=== PATIENT | female | born 1940 | race Caucasian/White ===

== ENCOUNTER 2016-09-19 15:43 | Inpatient (IN) | payer OTHER, BC ==
[~2016-09-19] VITALS: Ht 165.1 cm; Wt 111.8 kg
--- NOTE | ~2016-09-19 | H ---
[facility] [place] [address] HISTORY AND PHYSICAL Name: ZENAIDA MONTES Room #: 432-P ADM IN M.R.#: [id number] Admission: 09/19/16 Attend Phys: Kristopher Fajardo MD Discharge: Date of : 40 Report #: [id number] THIS REPORT FOR: //name// CC: Mitzy Fajardo DATE OF SERVICE: 09/19/2016 CHIEF COMPLAINT: Shortness of breath and cough. HISTORY OF PRESENT ILLNESS: This is a 76-year-old female with history of hypertension, history of COPD who presented to the Emergency Room complaining of progressively worsening shortness of breath. Symptoms have been ongoing over the last 3 weeks. She was referred to the Emergency Room because of worsening hypoxia. The patient normally uses 2 liters of oxygen with activity. Apparently, she turned up her oxygen up to 4 L and she was not able to get it up over 90%. The patient was seen by PCP and referred to the hospital for admission. She has had cough with grayish sputum. No history of any chest pain, no dizziness. She has had some mild low-grade fever. She has also noticed increasing lower extremity swelling. PAST MEDICAL HISTORY: Significant for hypertension, history of coronary artery disease, status post AL and status post stent, history of brain aneurysm, status post clipping. She has no history of any VEHICLE WASHER bleed. Denies any peptic ulcer disease or bleeding disorder. No history of any diabetes. She has history of COPD. She has a history of hysterectomy, craniotomy, seizures, history of questionable DVT in the past, obesity. ALLERGIES: SHE IS ALLERGIC TO KEPPRA, ROCEPHIN AND DILANTIN. Please look at the nursing documentation for the reaction. HOME MEDICATIONS: Reviewed, please look at the nursing documentation for home meds. SOCIAL HISTORY: Ex-smoker, stopped smoking 20 years ago. No history of alcohol abuse or illicit drug abuse. FAMILY HISTORY: Significant for heart disease and hypertension. REVIEW OF SYSTEMS: CONSTITUTIONAL: She has lost some weight, unable to quantify. She has had some fever and chills. EYES: No change in vision. THROAT: Denies any sore throat. CARDIOVASCULAR: No chest pain, dizziness, palpitations. [facility] [address] [place] [address] HISTORY AND PHYSICAL Name: ZENAIDA MONTES Room #: 432-P [facility] IN ..#: [id number] Admission: 09/19/16 Attend Phys: Kristopher Fajardo MD Discharge: Date of : 40 Report #: [id number] RESPIRATORY: As above. GASTROINTESTINAL: No nausea, vomiting, abdominal pain. GENITOURINARY: No dysuria, hematuria. NEUROLOGIC: No focal numbness or weakness of the extremities. PSYCHIATRIC: No anxiety or depression. A 12-point review of system is negative other than the positive and the negative dictated in the history of present illness and in the review of system. PHYSICAL EXAMINATION: VITAL SIGNS: Reviewed. Blood pressure 171/78, heart rate of 98 per minute. The patient is saturating around 93% on 4 liters of oxygen. Afebrile. GENERAL: Awake and alert. She is in mild respiratory distress. EYES: Pupils equal, reactive to light. Throat appears normal. NECK: Supple, no JVD, no bruit, no lymphadenopathy. CARDIOVASCULAR SYSTEM: S1, S2, no S3, no murmur. CHEST: Bilateral air entry present bilaterally, expiration is prolonged bilateral wheeze present. ABDOMEN: Soft, bowel sounds present, no mass, no organomegaly, no tenderness. PERIPHERY: Has 1+ pedal edema. No calf tenderness. Dorsalis pedis 1+. NEUROLOGICAL: No gross motor or sensory deficit. LABORATORY DATA: Reviewed. White count is 14.6, hemoglobin is 12.4. Differential showed 82% segs. Blood gas showed a pH of 7.52, pCO2 of 42, pO2 of 67 and 92% saturation on 5 liters of oxygen. Chemistry showed a hemoglobin of 2.8. Sodium is 141, BUN and creatinine are 7 and 0.6. BNP is 1647, troponin is 0.04. EKG showed sinus rhythm, left ventricular hypertrophy, nonspecific T-wave abnormality. ASSESSMENT: 1. Acute on chronic respiratory failure, most likely secondary to pneumonia and COPD exacerbation. Chest x-ray did show bibasilar hazy infiltrates. The patient will be on DuoNebs, IV steroids and antibiotics. Pulmonary will be consulted. I will also order a D-dimer. We will consider doing a CT of the chest if the D-dimer is elevated. Venous Doppler of the lower extremity has also been requested to rule out any deep venous thrombosis. 2. History of hypertension. The patient will be continued on her present home medication for hypertension. 3. Deep venous thrombosis prophylaxis, she will be placed on Lovenox for DVT prophylaxis. 4. History of seizure disorder, on carbamazepine, which will be continued. 5. History of hyperlipidemia. The patient will be continued on statin. [facility] [address] [place] [address] HISTORY AND PHYSICAL Name: ZENAIDA MONTES Room #: 432-P [facility] IN .R.#: [id number] Admission: 09/19/16 Attend Phys: Kristopher Fajardo MD Discharge: Date of : 40 Report #: [id number] Treatment plan has been explained to the patient and the patient's family at bedside in detail. <ELECTRONICALLY SIGNED> By: Kristopher Fajardo MD 09/21/16 1108 [id number] Kristopher Fajardo MD /nt
--- NOTE | ~2016-09-19 | HC ---
[facility] [place] [address] CONSULTATION Name: MONTESZENAIDA M Room #: 239-P [facility] IN .R.#: [id number] Admission: 09/19/16 Attend Phys: Kristopher Fajardo MD Discharge: Date of : 40 Report #: [id number] THIS REPORT FOR: //name// CC: Sam Fajardo DATE OF SERVICE: 09/27/2016 CHIEF COMPLAINT: Nausea and vomiting. HISTORY OF PRESENT ILLNESS: The patient is a 76-year-old female, admitted on 09/19/2016, with shortness of breath and cough. At that time, workup showed pulmonary embolism and possible pneumonia, which may be consistent with aspiration pneumonia. She had had a productive cough with thomas sputum. She had also had low grade fever and increasing lower extremity swelling. The patient's past medical history had been positive for hypertension, coronary artery disease, previous myocardial infarction with stent, previous brain aneurysm. No history of intracranial hemorrhage. No prior peptic ulcer disease or bleeding disorder. She did have history of COPD, requiring oxygen at home, possible history of DVT in the past, history of obesity, prior surgical history of hysterectomy and craniotomy. She was admitted and treated for pneumonia and anticoagulated for pulmonary embolism. She was noted late last week to develop black vomitus and was noted to have heme positive stools. Gastroenterology was consulted and she was treated with MiraLax for potential constipation. CT scan was obtained 4 nights ago with a small amount of oral contrast. This showed some questionable liver lesions and diverticulosis. The liver lesions were characterized as scattered hypodensities within the liver, possible cysts versus metastatic disease, no focal inflammatory changes of the bowel were identified. No wall thickening. No appendicitis. Dense aortic plaquing was noted without aneurysm or adenopathy. Pancreas was normal in size without focal abnormality or inflammatory change. Gallbladder showed dependent stones without wall thickening or bile duct dilatation. On September 26, yesterday, the patient underwent EGD, which showed grade D erosive esophagitis. She was noted to have a large amount of fluid and residual food within the stomach consistent with possible gastroparesis. At the first portion of the duodenum; however, it was noted that the scope was unable to be passed further. Biopsies were obtained. The remainder of the duodenum was unable to be visualized according to GI. No obvious active bleeding within the stomach or esophagus was noted. The pylorus itself appeared normal. Upper GI series with barium contrast was obtained this morning and it showed duodenal obstruction with lack of gastric emptying past the first portion of the duodenum. Esophagus showed normal morphology and mortality, no obvious hiatal hernia or gastroesophageal reflux was identified. PAST MEDICAL HISTORY: As described above, hypertension, coronary artery disease with stent, prior myocardial infarction; previous brain aneurysm, requiring craniotomy and clipping; COPD, on home oxygen; seizure disorder, [place] [address] CONSULTATION Name: ZENAIDA MONTES Room #: 239-P [facility] IN M.R.#: [id number] Admission: 09/19/16 Attend Phys: Kristopher Fajardo MD Discharge: Date of : 40 Report #: [id number] questionable history of DVT, previous history of issues with obesity. PAST SURGICAL HISTORY: Hysterectomy, craniotomy, left total knee replacement, and oral surgery in the past. ALLERGIES: Include Keppra, Rocephin, and Dilantin. HOME MEDICATIONS: Included DuoNebs, aspirin, benazepril, carbamazepine, chlorthalidone, clonidine, Lovenox 100 mg subcu twice daily, Advair, furosemide, Xopenex, Levaquin, loratadine, Meloxicam, methylprednisolone, metoprolol, and rosuvastatin. FAMILY HISTORY: Negative for history of colon cancer or ulcer disease. Coronary artery disease is present in the family history. SOCIAL HISTORY: The patient lives with her who is present at the bedside. Social ETOH only. Negative for illicit drug use. Previous smoker many years ago, stopped in approximately 2004. PHYSICAL EXAMINATION: GENERAL: The patient is awake with a nasogastric tube in place. She is uncomfortable, but in no acute distress. She is well nourished. HEENT: Head is atraumatic and normocephalic. Oropharynx is clear. No icterus is appreciated. NECK: Supple. LUNGS: Clear to auscultation. HEART: Regular without murmur. No jugular venous distention. ABDOMEN: Soft, nondistended, nontender to palpation. EXTREMITIES: With 1+ edema. NEUROLOGIC: No obvious focal deficits. LABORATORY STUDIES: Reviewed. CBC shows a white count of 17.9, hemoglobin of 11, and platelets of 238. Glucose of 91, 98 and then 147. Basic metabolic profile shows sodium 140, potassium 4, chloride 101, CO2 of 32, BUN of 25, and creatinine 0.9. IMPRESSION: A 76-year-old female with duodenal obstruction of unclear etiology, status post EGD with biopsies yesterday and with upper GI series performed today showing this same process. No obvious history of prior peptic ulcer disease, also noted to have multiple hypoechoic lesions in the liver of unclear etiology. Recent diagnosis of pulmonary embolism and possible prior history of deep venous thrombosis. RECOMMENDATIONS: 1. Will obtain CT scan of the abdomen and pelvis with pancreas protocol. The patient has a normal creatinine and should therefore tolerate the intravenous contrast. Nasogastric tube has been placed for low intermittent wall suction to help decompress the stomach and remove the barium to improve the visualization of the target area. 2. Concern for possible neoplastic process given the mass-like obstruction seen on EGD as well as the relative lack of passage of oral contrast past the first portion of the [facility] [address] [place] [address] CONSULTATION Name: JYOTIZENAIDA Carl Room #: 239-P [facility] IN M.R.#: [id number] Admission: 09/19/16 Attend Phys: Kristopher Fajardo MD Discharge: Date of : 40 Report #: [id number] duodenum on upper GI series today. Detailed discussion held with gastroenterology as well as radiology and the patient and her family at the bedside today. Will follow up results of biopsies from today as well as with the more detailed CT images, which hopefully will be obtained tomorrow. 3. No immediate surgical intervention, although this may become warranted in the near future. Also discussed that possible percutaneous biopsy of these multiple liver masses may prove beneficial in the near future. Consultation very much appreciated. We will continue to follow closely and make further recommendations based upon clinical status and radiographic and laboratory findings. Greater than 1 hour utilized gathering information from the various studies and procedures as well as with discussing the case with the patient, her family and with the various members of the medical team. <ELECTRONICALLY SIGNED> By: Shane Ochoa MD 10/04/16 1730 1857 05 Shane Ochoa MD /stella
--- NOTE | ~2016-09-19 | HC ---
[facility] [place] [address] CONSULTATION Name: ZENAIDA MONTES Room #: 432-P [facility] IN M.R.#: [id number] Admission: 09/19/16 Attend Phys: Kristopher Fajardo MD Discharge: Date of : 40 Report #: [id number] THIS REPORT FOR: //name// CC: Mitzy Fajardo REASON FOR CONSULTATION: The patient is a 76-year-old woman with nausea, vomiting and diarrhea. HISTORY OF PRESENT ILLNESS: A 76-year-old woman who reports she had difficulty with cough and shortness of breath for about 3 weeks. She presented to her physician and was referred to [facility] for admission. She was admitted with an acute respiratory infection and exacerbation of chronic obstructive pulmonary disease. The patient reports that here in the hospital, she developed constipation. She noted that she had a couple of large stools and then did not go for a number of days, and it may have been 5 to 6 days before she finally went. She also developed some nausea and vomiting here in the hospital. She was given laxatives for constipation but thinks the nausea and vomiting had started prior to the laxative administration. She said she vomited up some blackish type material but not bright red blood. It is noted that she does use meloxicam for osteoarthritis. She continued to feel bad. She had further nausea and vomiting, and last night finally had a large amount of diarrhea that was not grossly bloody. Due to her symptoms, a CT of the abdomen and pelvis was obtained. The study was done with oral contrast only. There was a strand-like infiltrate in the lingula, some nodularity in the liver which may represent cyst; although, it is noted that metastatic disease is not entirely excluded. The largest lesion was 9 mm. The spleen was normal. No inflammatory changes were seen involving the bowel. There was also evidence of cholelithiasis and mild diverticular disease. The patient reports that she is feeling better today. Her stools were found to be hemoccult positive. She has had several colonoscopies with Dr. Ricketts in the past. She thinks the last was 3 to 4 years ago. She thinks she has had at least 3. She believes she has had polyps. She said she may have received a notice to return for colonoscopy, but things were going on at the time she got the notice, so she never followed through. Also noted, there is no history of liver disease. PAST MEDICAL HISTORY: High blood pressure. She has had previous coronary artery disease with previous myocardial infarction and stent placement. She has had a brain aneurysm which required a clip. She does have chronic obstructive [address] [address] CONSULTATION Name: ZENAIDA MONTES Room #: 432-P [facility] IN M.R.#: [id number] Admission: 09/19/16 Attend Phys: Kristopher Fajardo MD Discharge: Date of : 40 Report #: [id number] pulmonary disease. Also had a seizure disorder which has not been a problem in years. There is also a questionable history of DVT. She has had problems with obesity. PAST SURGICAL HISTORY: Clipping of knee aneurysm. She has had a left total knee replacement. Also a hysterectomy and had a recent gum surgery. ALLERGIES: Keppra, Rocephin and Dilantin. HOME MEDICATIONS: Usual home medicines include DuoNeb, aspirin 81 mg daily, benazepril 40 mg twice daily, carbamazepine 200 mg 3 times daily, chlorthalidone 20 mg day, clonidine 0.1 mg at bedtime, enoxaparin 100 mg subq twice daily, Advair HFA 2 puffs b.i.d., furosemide 40 mg daily, Xopenex 0.3 mg inhalation every 4 hours, Levaquin 750 mg daily, loratadine 10 mg daily, meloxicam 15 mg daily, methylprednisolone 40 mg q.12, metoprolol 50 mg twice daily and rosuvastatin 40 mg daily. FAMILY HISTORY: No family history of colon cancer or ulcer disease. Both of her sons have had coronary artery disease. SOCIAL HISTORY: The patient lives with her . She does like to drink beer on occasion but not on a regular basis. She is a former cigarette smoker. PHYSICAL EXAMINATION: GENERAL: The patient is a well-developed and well-nourished overweight woman, in no acute distress. VITAL SIGNS: Blood pressure 177/61. HEENT: Anicteric. Pupils equal and round. Oropharynx is clear. NECK: Supple. CHEST: Clear. HEART: Regular rate and rhythm, normal S1 and normal S2. ABDOMEN: Obese, normal bowel sounds, soft and nontender without hepatosplenomegaly. RECTAL: Not done at this time. EXTREMITIES: Revealed 1+ to 2+ bilateral feet edema. NEUROLOGIC: Oriented to person, place and time, moves all 4 extremities well. ASSESSMENT: 1. Nausea and vomiting. 2. Coffeeground emesis. 3. Constipation. 4. Pneumonia. 5. Coronary artery disease. 6. Chronic obstructive pulmonary disease. 7. Use of nonsteroidals. 8. Use of steroids. [facility] [address] [place] [address] CONSULTATION Name: ZENAIDA MONTES Room #: 432-P [facility] IN M.R.#: [id number] Admission: 09/19/16 Attend Phys: Kristopher Fajardo MD Discharge: Date of : 40 Report #: [id number] 9. History of seizure disorder. 10. Question of prior deep vein thrombosis. 11. Small liver lesions, uncertain etiology. RECOMMENDATIONS: 1. Monitor hemoglobin for bleeding. 2. A proton pump inhibitor. 3. MiraLax for constipation as needed. 4. Consider upper endoscopy, likely first of the week. 5. Consider a colonoscopy depending on clinical course or comments. It is not entirely clear why she has the vomiting, but those symptoms have improved. She notes that she has some propensity to constipation. She is usually able to manage this problem with dietary factors alone. However, dietary factors were limited here in the hospital, which may have been part of the reason why she had worsening constipation. 6. Need to consider further evaluation of the liver lesions, possibly MRI. <ELECTRONICALLY SIGNED> By: Cal Escudero MD 09/25/16 1141 [id number] Cal Escudero MD /nt
--- NOTE | ~2016-09-19 | O ---
[facility] [place] [address] OPERATIVE REPORT Name: ZENAIDA MONTES Room #: 239-P ADM IN M.R.#: [id number] Admission: 09/19/16 Attend Phys: Kristopher Fajardo MD Discharge: Date of : 40 Report #: [id number] THIS REPORT FOR: //name// CC: Sam Fajardo DATE OF SERVICE: 10/03/2016 PREOPERATIVE DIAGNOSES: 1. Obstructing duodenal mass. 2. Inconclusive diagnosis per previous EGD with biopsy, and inability to obtain pancreas-protocol CT scan. 3. Multiple liver lesions visualized on CT scan and ultrasound, unclear etiology. 4. History of severe chronic obstructive pulmonary disease requiring home oxygen. 5. Recent development of pulmonary emboli status post IVC filter placement. 6. Coronary artery disease status post cardiac stent placement. 7. History of brain aneurysm status post clipping. POSTOPERATIVE DIAGNOSES: 1. Obstructing duodenal mass. 2. Inconclusive diagnosis per previous EGD with biopsy, and inability to obtain pancreas-protocol CT scan. 3. Multiple liver lesions visualized on CT scan and ultrasound, unclear etiology. 4. History of severe chronic obstructive pulmonary disease requiring home oxygen. 5. Recent development of pulmonary emboli status post IVC filter placement. 6. Coronary artery disease status post cardiac stent placement. 7. History of brain aneurysm status post clipping; pending pathology. PROCEDURE: Jameson-en-Y gastrojejunostomy, excisional liver biopsy, placement of Prevena external negative pressure therapy device. SURGEON: Shane Ochoa M.D. DIRECTOR UNIVERSITY: Jarrett Thompson MD. MEDICAL STUDENTS: Judith Hickman and Sarai Stephenson. ANESTHESIA: General endotracheal anesthesia. ESTIMATED BLOOD LOSS: 50 mL. INTRAVENOUS FLUIDS: 3 L of crystalloid. URINE OUTPUT: 500 mL per Victoria catheter. DRAINS PLACED: Nasogastric tube kept to low intermittent wall suction, Victoria catheter left in place. FINDINGS: Firm palpable mass at the D1-D2 level versus from the [facility] [address] [place] [address] OPERATIVE REPORT Name: ZENAIDA MONTES Room #: 239-[facility] IN ..#: [id number] Admission: 09/19/16 Attend Phys: Kristopher Fajardo MD Discharge: Date of : 40 Report #: [id number] head proper. Multiple liver lesions were palpable and visible. One of these which measured approximately 1 cm in diameter was excised and passed off for pathology analysis. Jameson-en-Y gastrojejunostomy performed with JJ anastomosis created approximately 35 cm distal to the ligament of Treitz. Retrocolic, retrogastric Jameson limb placed. INDICATION FOR PROCEDURE: The patient is a 76-year-old female with history of recently worsened shortness of breath and cough, admitted for pulmonary workup. This demonstrated pulmonary emboli and she had been placed on anticoagulation therapy for this. She subsequently developed coffee-ground emesis and underwent EGD, which showed an obstruction at the level of D1-D2. Biopsies were taken at that time during a difficult procedure according to the GI notes. These biopsies showed inflammatory response such as duodenitis only. A subsequent barium esophagram was performed and this also showed almost complete obstruction at that D1-D2 level. Subsequent evaluation with CT scan using pancreatic protocol was made impossible by the barium which remained within the gastric lumen. Multiple attempts to aspirate this and lavage this from the stomach using nasogastric suctioning were unsuccessful. There were also noted to be several liver lesions which some were appeared apparently cystic, others appeared more solid. Because of the barium within the stomach, further evaluation proved difficult and IR guided biopsy was not made possible as yet. Further the anatomic location of her particular anatomy with liver behind the rib and diaphragm also made visualization with ultrasound quite difficult. The patient had been admitted for quite some time and had been started on partial parenteral nutrition and ultimately, she desired for an intervention to allow egress from the gastric lumen and removal of nasogastric tube as well as with more thorough EGD performed under general anesthetic. Detailed discussion of risks and benefits of Jameson-en-Y gastrojejunostomy was held with the patient and her family. Detailed discussion of all the risks and benefits including bleeding, pain, infection, anastomotic leak, stricture, need for future procedure, possible inability to obtain a tissue diagnosis and possible need for liver biopsy should masses be seen or palpated during the procedure, damage to surrounding structures such as colon, small bowel, common bile duct, liver, lung and other surrounding structures was all discussed in great detail and all questions were answered to their satisfaction. Written informed consent was obtained. DESCRIPTION OF PROCEDURE: The patient was brought to the operating room and placed in a supine position. Timeout was taken to verify the patient's identity and to plan the procedure. SCDs were in place on the lower extremities bilaterally. Preoperative antibiotics were administered. Anesthesia was induced. The patient was intubated. At this point, fishery biologist performed a thorough EGD. Please refer to the GI procedure note for more detailed description of this procedure. Briefly, this showed that persistent obstruction at the level of approximately D1-D2 junction. Biopsies were taken by GI at that time. This did appear to be a polypoid type [facility] [address] [place] [address] OPERATIVE REPORT Name: ZENAIDA MONTES Room #: 239-P [facility] IN .R.#: [id number] Admission: 09/19/16 Attend Phys: Kristopher Fajardo MD Discharge: Date of : 40 Report #: [id number] lesion according to the fishery biologist. General Surgery portion of the case was then performed. Abdomen was sterilely prepped and draped in standard fashion. Upper midline celiotomy was created with a 10 blade and carried through the skin and subcutaneous soft tissue. Dissection with electrocautery was performed on the level of the fascia with retraction of the adipose tissue laterally using laparotomy patch. The linea alba was identified and grasped x 2 with Kimber clamps. This was incised carefully with Metzenbaum scissors and digital palpation showed that no obvious adhesions or viscera were adherent to the peritoneum on the deep aspect. This was then opened using electrocautery up to the subxiphoid down to close to the umbilicus with care to protect the viscera using a digit placed behind the peritoneum along this incision. Retraction was then performed and viscera were examined. The small bowel was noted to be mildly dilated. Palpation of the liver showed that there were multiple visible and palpable nodules along the surface of the liver and on the underside, one was selected for biopsy and this was grasped with an Allis tenaculum and excised from the antral superior surface of the left lobe of the liver. This was passed off as excisional liver biopsy. This site was cauterized with fulguration on high setting and Surgicel was packed into that site with good hemostatic control. Palpation of the pylorus and duodenum demonstrated a firm palpable mass, possibly 4-5cm diameter, contained within the viscera of approximately the D1-D2, head of the pancreas confluence. It was unable to be determined from this particular dissection the exact location of the mass. Kocherization was not performed and further dissection in that region was not performed at this time, so as to avoid damage to the surrounding structures, or perhaps seeding a potential tumor. Attention was returned to the body of the stomach and this was noted to be decompressed with a nasogastric tube in proper position. Colon was identified as well as greater omentum. Small bowel was examined and run from distal to proximal up to the ligament of Treitz. The bowel was then traced down approximately 35 cm distal to the ligament of Treitz and transected using linear cutting stapler with a EDDIE blue load 1 firing. The mesocolon was then examined and a window was made at approximately the midportion of the transverse colon in the mesocolon just deep to the colon itself with care to protect the colonic wall from electrocautery injury. A 2-3 fingerbreadth window was made in that location. The mesentery of the previously transected small bowel was split using a LigaSure device down closer to the root of the mesentary to allow the distal limb, which would become the Jameson limb, to be brought up through the mesocolon window. This was grasped with a Lourdes more proximally near the stomach and was held in position there. The biliary limb was then brought into apposition with the Jameson limb approximately 30 cm downstream from the mesocolon window and anastomosis was performed at that site. This was done using initially 3-0 PDS interrupted sutures, which were used to anchor the 2 loops of small bowel, [id number] at 3 locations. Windows were made in both the biliary limb and the Jameson limb using electrocautery and then curved Leslie scissors through the mucosa. Sterile blue [facility] [address] [place] [address] OPERATIVE REPORT Name: ZENAIDA MONTES Room #: 316-P [facility] IN M.R.#: [id number] Admission: 09/19/16 Attend Phys: Kristopher Fajardo MD Discharge: Date of : 40 Report #: [id number] towels had been triangulated in place surrounding the site to prevent spillage. Linear cutting stapler with blue load was then fired to create a common channel and this was inspected and noted to be widely patent with no active bleeding within the lumens. The common channel was then closed using running 3-0 PDS suture and then imbricated running Lembert 3-0 PDS suture. Careful palpation demonstrated that the anastomosis was widely patent at that site to at least 2 fingerbreadths with the juncture of the loops were then reinforced with tension relieving sutures with interrupted 3-0 PDS at that site x 2. Attention was then turned to the gastrojejunal anastomosis. The proximal end of the Jameson limb was brought into apposition with the inferior posterior aspect of the stomach. This had been cleared of some of the attachments with the greater omentum using LigaSure device and several of the short gastric and gastroepiploic vessels had been taken down using this method with good hemostatic control. Nasogastric tube was removed per anesthesiologist. The region was draped off to control spillage and a gastrostomy was created using electrocautery and curved Leslie scissors as well as an opening within the proximal aspect of the Jameson limb. Linear cutting stapler with blue load was fired to create a common channel and this was closed using similar fashion 3-0 PDS running suture as well as imbricated 3-0 PDS suture. Upon palpation at this site, it was noted that the opening was too narrow and therefore, this was reopened and a further firing of the linear cutting stapler was utilized to elongate that common channel to create a wider mouth epigastric jejunal anastomosis. This was again closed using running 3-0 PDS suture and then with imbricating Lembert running 3-0 PDS superficial to this. Several other 3-0 PDS interrupted sutures were utilized to tuck the corners and to cover the staple line at all locations. Attention relieving sutures were also used in the form of 3-0 PDS x 3 at the junction of the stomach, body and the jejunum itself. Examination of the passage through the mesocolonic window was performed and this was noted to be too large and this was therefore closed to proper tightness around the Jameson limb of the jejunum such that an instrument would pass adjacent to the jejunal loop, but the opening would not accomodate the surgeon's digit. This was also used to anchor the lumen of the jejunum to that mesocolon in both the superior and inferior aspects. Reexamination of the JJ anastomosis was again performed and this was again noted to be widely patent. Further inspection of the viscera showed no other obvious abnormalities. A tongue of omentum was brought up and tacked around the gastrojejunal anastomosis for added protection from potential leak. The abdominal cavity was then irrigated with copious warm sterile saline and suctioned clear. The celiotomy was then closed using running #1 looped PDS suture. The wound was again irrigated and suctioned clear. Hemostasis was again carefully verified. The skin was closed using skin clips and Prevena external negative therapy pressure device was applied with good seal. The nasogastric tube had been left in place and was palpated to be within the stomach body. It should be mentioned that this had been removed prior to firing the linear cutting stapler for the gastrojejunal anastomosis. The NG tube had been replaced by Anesthesia and was palpated to be well within the body of the stomach but away from the [facility] [address] [place] [address] OPERATIVE REPORT Name: ZENAIDA MONTES Room #: 239-P [facility] IN M.R.#: [id number] Admission: 09/19/16 Attend Phys: Kristopher Fajardo MD Discharge: Date of : 40 Report #: [id number] anastomotic site. At this point, the case was ended. All instrumentation had been extracted and accounted for. All counts were correct per nurse report. The patient was left intubated and taken to the postoperative care unit. <ELECTRONICALLY SIGNED> By: Shane Ochoa MD 10/04/16 1806 1113 1222 Shane Ochoa MD /nt
--- NOTE | ~2016-09-19 | S ---
[facility] [place] [address] SURGICAL PATH RPT PROCEDURE Name: ZENAIDA REICH Room #: 239-P ADM IN M.R.#: [id number] Admission: 09/19/16 Date of : 40 Discharge: Report #: [id number] Path Case #: [id number] PATHOLOGY REPORT COLLECTION DATE: 10/03/2016 RECEIVED DATE: 10/03/2016 SUBMITTING PHYS: Dr. Shane Ochoa OTHER PHYS: Dr. Trent Coronado SPECIMEN(S) RECEIVED: A.Liver biopsy B.Duodenal polyp * * * * * * * * * * * * FINAL DIAGNOSIS: A. 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 (PLEASE SEE COMMENT) B. Small bowel, duodenal bulb, endoscopic biopsy: - Peptic duodenitis, mild. - Negative for dysplasia or malignancy. COMMENT: Examination shows an adenocarcinoma forming acini with cribriform architecture, mild to moderate nuclear atypia, as well as focal extravasated mucin. Immunohistochemical stains are performed: (Block A1) CK7: strongly reactive CK20: focal membranous reactive CK19: strongly reactive AE1/AE3: strongly reactive CDX-2: focal nuclear reactive BETHANY: membranous reactivity Vimentin: non-reactive PAX-8: non-reactive TTF-1: non-reactive Napsin: non-reactive HSA: non-reactive Based on the morphology as well as the immunohistochemical stain profile, the possible primary for this neoplasm may be a pancreatic malignancy. The differential diagnosis includes a metastatic carcinoma of both upper and lower gastrointestinal origin. The non-reactive immunohistochemical stains argue against metastatic carcinoma of endometrial, liver, renal cell origin, as well as lung [facility] [address] [place] [address] SURGICAL PATH RPT PROCEDURE Name: ZENAIDA REICH Room #: 239-P [facility] IN ..#: [id number] Admission: 09/19/16 Date of : 40 Discharge: Report #: [id number] Path Case #: [id number] orgin. Co-review: Dr. Apryl Murillo (H and E slide Part A only) Findings are discussed with Dr. Everardo Ochoa at 11:33 AM on 10/05/16. (IUV:mgr; d/t: 10/04/16) PATHOLOGIST: Marlene Tripp M.D. REPORT ELECTRONICALLY SIGNED BY: Marlene Tripp M.D. DATE/TIME: 10/05/2016 11:35 * * * * * * * * * * * * GROSS PATHOLOGY: A. The specimen is received in formalin, labeled "Zenaida Reich and liver biopsy." Received is a 2.0 x 0.5 x 0.5 cm aggregate of russell-brown, rubbery, and irregular soft tissue. The specimen is entirely submitted in cassette A1. B. Received in formalin labeled "Zenaida Reich and duodenal polyp," are 2 segments of russell soft tissue measuring 0.7 x 0.3 x 0.2 cm in aggregate dimensions and measuring 0.3 and 0.4 cm in maximum dimension. The specimen is submitted entirely in cassette B1. (TTL; 10/03/2016) CLINICAL HISTORY: Duodenal obstruction INITIAL CPT CODE(S): A; 64811, 57247, 93186, 98426, 43445, 48138, 54480, 23988, 43207, 37955, 46043, 17439 B; 61778 Professional services performed by [facility] at [facility] [address], [place] [address] Technical services performed by [facility] at [address] [place] [address], [address], [place] [address]. [facility] [place] [address] PHONE: [phone] DIRECTOR: Antonino Jimenez M.D. * * * END OF REPORT * * *
--- NOTE | ~2016-09-19 | S ---
[facility] [place] [address] SURGICAL PATH RPT PROCEDURE Name: ZENAIDA MONTES Room #: 239-P ADM IN M.R.#: [id number] Admission: 09/19/16 Date of : 40 Discharge: Report #: [id number] Path Case #: [id number] PATHOLOGY REPORT COLLECTION DATE: 10/06/2016 RECEIVED DATE: 10/06/2016 SUBMITTING PHYS: Dr. Mery Cheek OTHER PHYS: Dr. Kristopher Ochoa SPECIMEN(S) RECEIVED: A.Peripheral smear * * * * * * * * * * * * FINAL DIAGNOSIS: Peripheral blood smear: - Mild to moderate normocytic anemia, mild leukocytosis/neutrophilia, and mild to moderate thrombocytopenia. (see comment) COMMENT: Overall, the peripheral blood has mild to moderate normocytic anemia, mild leukocytosis/neutrophilia, and mild to moderate thrombocytopenia. The etiology of the findings is unclear based entirely on slide review. A recent blood transfusion is noted. Potential causes of normocytic anemia include anemia of chronic disease, treated and/or compensated vitamin and mineral deficiencies, acute blood loss and dilutional. The mild leukocytosis/neutrophilia is likely a reactive condition. Potential causes of thrombocytopenia include immune and non-immune platelet destruction, drug and/or toxic exposures, consumption, dilutional, and primary bone marrow disorders. Correlation with clinical history and additional laboratory data is recommended. (CLW:mgr; d/t: 10/06/16) PATHOLOGIST: Apryl Murillo M.D. REPORT ELECTRONICALLY SIGNED BY: Apryl Murillo M.D. DATE/TIME: 10/06/2016 16:33 * * * * * * * * * * * * MICROSCOPIC DESCRIPTION: CBC Data (10/06/16): WBC 14,300 /uL, RBC 3.64, hemoglobin 10.0 g/dL, hematocrit 30.5%, MCV 83.9 fL, MCH 27.4 pg, MCHC 32.7 g/dL, RDW 21.6%, and platelet count 102,000 /uL. Manual white blood cell [address] [address] SURGICAL PATH RPT PROCEDURE Name: ZENAIDA MONTES Room #: 239-P ADM IN M.R.#: [id number] Admission: 09/19/16 Date of : 40 Discharge: Report #: [id number] Path Case #: [id number] differential: 97% segs, 1% lymphs, 2% monos. Peripheral Blood Smear: Cytomorphological examination of the Cronin's stained peripheral blood smear confirms the provided data. Red blood cells show mild to moderate normocytic anemia with moderate anisocytosis. No significant poikilocytosis is identified. Rare dacryocytes (pointed RBCs, teardrop cells), ovalocytes, and stomatocytes are noted. White blood cells are mildly increased in number. They are predominantly segmented neutrophils and are without significant dyspoiesis or significant left shift. Lymphocytes are predominantly small, round, and mature appearing with condensed chromatin and scant cytoplasm with admixed large granular lymphocytes. On scanning, no markedly atypical lymphoid cells are seen. Monocytes are mature. Platelets are mild to moderately decreased in number and mainly normal in morphology with rare larger platelets noted. CLINICAL HISTORY: 76 year-old woman with leukocytosis, anemia, and thrombocytopenia. Morphologic review of the peripheral blood smear is requested by the patient's physician. INITIAL CPT CODE(S): A; NC Professional services performed by [facility] at [facility] [address], [place] [address] Technical services performed by [facility] at [address] [place] [address], [address], [place] [address]. [facility] [address] [place] [address] PHONE: [phone] DIRECTOR: Antonino Jimenez M.D. * * * END OF REPORT * * *
--- NOTE | ~2016-09-19 | HC ---
[facility] [address] [address] CONSULTATION Name: MONTESZENAIDA M Room #: 432-P [facility] IN M.R.#: [id number] Admission: 09/19/16 Attend Phys: Kristopher Fajardo MD Discharge: Date of : 40 Report #: [id number] THIS REPORT FOR: //name// CC: Sam Fajardo DATE OF SERVICE: 09/20/2016 REASON FOR CONSULTATION: Respiratory failure. IMPRESSION: 1. Acute on chronic respiratory failure. 2. Chronic obstructive pulmonary disease/emphysema exacerbation. 3. Pneumonia. 4. Acute pulmonary embolus. 5. Obstructive sleep apnea, on CPAP, unable to tolerate at present with respiratory infection. 6. Anemia, normocytic. 7. Hyperkalemia. 8. Leukocytosis. 9. Hypertension. 10. History of seizure. PLAN: Agree with current therapy, aerosol therapy, antibiotics, corticosteroids. We will treat her sleep apnea when she is nauseous as she threw up and we will avoid this. She will keep her head of bed elevated and we will monitor. HISTORY OF PRESENT ILLNESS: A 76-year-old female comes in with progressive shortness of breath over the last 2-3 weeks, cough, sputum production. The patient saw PCP, referred to hospital because of discolored sputum, fever, chills. MEDICATIONS: Included meloxicam, Centrum, Tegretol, Tagamet, aspirin, metoprolol, Lotensin, furosemide, Claritin, clonidine, Ventolin, Spiriva, Dulera. SOCIAL HISTORY: Quit tobacco 20 years ago. Negative ETOH. FAMILY HISTORY: Lung CA, CVA, diabetes, heart disease. PAST SURGICAL HISTORY: Include cerebral aneurysm clipping with craniotomy, left knee replacement. ALLERGIES: To DILANTIN, KEPPRA and ROCEPHIN. [facility] [address] [place] [address] CONSULTATION Name: MONTESZENAIDA Room #: 432-P [facility] IN [facility]#: [id number] Admission: 09/19/16 Attend Phys: Kristopher Fajardo MD Discharge: Date of : 40 Report #: [id number] REVIEW OF SYSTEMS: As above with shortness of breath, some edema, arthritis, history of DVT popliteal in 2003, history of pulmonary hypertension. PHYSICAL EXAMINATION: VITAL SIGNS: Temperature 98.4, pulse 87, respirations 18, BP 176/121, earlier 162/77. EYES: Negative icterus. NECK: Negative JVD. LUNGS: Showed decreased breath sounds, coarse wheeze. HEART: Regular. ABDOMEN: Bowel sounds present. EXTREMITIES: Showed no calf tenderness. NEUROLOGIC: Alert, oriented. LABORATORY DATA: White count 9.2, hemoglobin 11.5, platelets 223, BUN 8, creatinine 0.5, glucose 159, potassium 3.3. CT PE protocol showed lingular infiltrate as well as small emboli. Right upper and lower lobe venous Dopplers, however, were negative. D-dimer was 3.06, pH 7.524, pCO2 42, pO2 67 on 5 liters. We will follow closely with you. <ELECTRONICALLY SIGNED> By: Joseph Garcia MD 09/25/16 2229 1705 0232 Joseph Garcia MD /nt
--- NOTE | ~2016-09-19 | P ---
[facility] [place] [address] PROCEDURE REPORT Name: ZENAIDA MONTES Room #: 432-P [facility] IN M.R.#: [id number] Admission: 09/19/16 Attend Phys: Kristopher Fajardo MD Discharge: Date of : 40 Report #: [id number] THIS REPORT FOR: //name// CC: Mitzy Fajardo DATE OF SERVICE: 09/26/2016 PROCEDURE PERFORMED: Upper endoscopy with biopsies. HISTORY OF PRESENT ILLNESS: The patient is a 76-year-old female with midepigastric abdominal pain, nausea and vomiting as well as coffee ground type emesis. She has a history of pneumonia and pulmonary embolus and has been on anticoagulation therapy recently. Heparin drip has been stopped at this time. Plan is for upper endoscopy. DESCRIPTION OF PROCEDURE: The risks and benefits of the procedure were explained to the patient, those risks including but not limited to bleeding, perforation, the risk of sedation. She understood these risks and gave informed consent. Sedation was given using propofol and ketamine per anesthesia. Next, using a standard EZMoven upper endoscope, the scope was placed in the patient's mouth and advanced under direct vision into the first portion of the duodenum. The upper and mid esophagus was normal; however, in the distal esophagus, there was obvious reflux with fluid. I aspirated this away. There was evidence of severe grade D erosive esophagitis. No active bleeding, but the tissue was friable. Upon entering the stomach, a large amount of fluid/food was noted throughout the gastric fundus and upper body. The scope was then advanced into the antrum. The pylorus was normal. The duodenal bulb was normal; however, in the first portion of the duodenum, I was not able to advance the scope through this area as it was narrowed. It was difficult to evaluate and it was possible mass-like effect in this area. At this point, the patient she was having vomiting. I was able to obtain a few biopsies in this area, the time was limited again as the patient was vomiting. At this point, the scope was then withdrawn and the procedure terminated. The patient tolerated the procedure well. IMPRESSION: 1. Grade D erosive esophagitis. 2. Large amount of fluid and food residual within the stomach. This may reflect gastroparesis; however, with her findings of abnormality in the first portion of the duodenum, need to consider the possibility of gastric outlet obstruction. I was able to obtain a few biopsies. The plan at this point is to proceed with an upper GI study. If this area is patent and biopsies are [address] [address] PROCEDURE REPORT Name: ZENAIDA MONTES Room #: 432-P [facility] IN M.R.#: [id number] Admission: 09/19/16 Attend Phys: Kristopher Fajardo MD Discharge: Date of : 40 Report #: [id number] negative, may need to consider repeat upper endoscopy within the patient. In the meantime, we will leave the patient n.p.o. until upper GI study is complete. Thank you for allowing me to participate in her care. <ELECTRONICALLY SIGNED> By: Trent Mtz MD 09/30/16 0822 1513 1642 Trent Mtz MD /nt
--- NOTE | ~2016-09-19 | D ---
[facility] [place] [address] DISCHARGE SUMMARY Name: JYOTIZENAIDA Carl Room #: 307-P [facility] IN ..#: [id number] Admission: 09/19/16 Attend Phys: Kristopher Fajardo MD Discharge: 10/11/16 Date of : 40 Report #: [id number] THIS REPORT FOR: //name// CC: Sam Fajardo DATE OF SERVICE: 10/11/2016 HISTORY OF PRESENT ILLNESS: The patient is a 76-year-old female who was admitted to the hospital on 09/19/2016 for suspected COPD exacerbation. Please refer to the admission H and P for details. Shortly after, the patient was found to have small bilateral pulmonary emboli. Please refer to the H and P for details. HOSPITALIZATION COURSE: The patient was hospitalized at [facility]. As noted, she was treated for COPD exacerbation, but based on clinical presentation, small bilateral pulmonary emboli were diagnosed on CT angiography. The patient was treated with anticoagulation, as well as steroids and antibiotics for COPD exacerbation. On the that she was supposed to go to the rehabilitation unit, but she developed nausea and vomiting. GI team was involved for further evaluation. EGD was performed, that showed a mass, that was obstructing duodenal. Further evaluation revealed findings consistent with pancreatic cancer. The patient had a liver mets, and biopsy confirmed that. CA 19-9 levels were extremely high at 32,000. Oncologist was also consulted. Due to patient's ongoing symptoms, she underwent surgery on 10/03/2016, and she had a Jameson-en-Y gastrojejunostomy. The patient was transferred to the ICU, and after surgery, she was intubated for a day or so. She was successfully extubated and then she was transferred back to the floor. Oncologist was consulted. The patient and family members were informed about the newly diagnosed metastatic pancreatic cancer. The patient considered palliative chemotherapy. The patient's condition remains poor, and she remained short of breath, however, on some days she felt better. I made my rounds on 10/10/2016, the patient was at her recent baseline. She was slightly short of breath, but otherwise, was hemodynamically stable. [facility] [address] [place] [address] DISCHARGE SUMMARY Name: MONTESZENAIDA Room #: 307-P [facility] IN [facility].#: [id number] Admission: 09/19/16 Attend Phys: Kristopher Fajardo MD Discharge: 10/11/16 Date of : 40 Report #: [id number] By the next morning, I was informed that the patient became progressively short of breath, and she became bradycardic, after which she lost consciousness. Due to the patient's DNR status, she was not resuscitated. The patient was pronounced on 10/11/2016 in the morning. <ELECTRONICALLY SIGNED> By: Radha Alarcon MD 11/01/16 1623 22 2146 Radha Alarcon MD /stella
--- NOTE | ~2016-09-19 | EKG ---
[place] [address] [facility] [place] [address] ELECTROCARDIOGRAM REPORT Name: ZENAIDA MONTES Room #: 432- ADM IN M.R.#: [id number] Admission: 09/19/16 Attend Phys: Kristopher Fajardo MD Discharge: Date of : 40 Report #: [id number] THIS REPORT FOR: //name// [facility] Test Date: 2016-10-03 Test Time: 07:09:26 Pat Name: ZENAIDA MONTES Department: Room: 432 Gender: F Emergency Department Rn: CUAUHTEMOC : 1940 Requested By: Shane Ochoa Order Number: [id number] MD: Humberto Chavez Measurements Intervals [place] Rate: 89 P: 35 [place]: 127 QRS: -31 QRSD: 95 T: 37 QT: 364 QTc: 443 Interpretive Statements Sinus rhythm Left ventricular hypertrophy Inferior infarct, old Poor R-wave progression Compared to ECG 09/19/2016 16:37:23 Inferior Q waves more prominent Electronically Signed On 10-03-2016 8:02:58 MECHANIC GENERAL OPERATIONAL TEST by Humberto Chavez [email or web address] <ELECTRONICALLY SIGNED> By: Humberto Chavez MD, [facility] 02/801 8 8 Humberto Chavez MD, [facility] /EPI
--- NOTE | ~2016-09-19 | EKG ---
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 : 1940 Requested By: Sydni Hansen Order Number: [id number] MD: Humberto Chavez Measurements Intervals [place] Rate: 99 P: 84 HI: 201 QRS: -39 QRSD: 106 T: 71 QT: 366 QTc: 470 Interpretive Statements Sinus rhythm Left anterior fascicular block Poor R-wave progression No previous ECG available for comparison Electronically Signed On 09-20-2016 7:40:44 CATTLE DIPPER by Humberto Chavez [email or web address] <ELECTRONICALLY SIGNED> By: Humberto Chavez MD, [facility] 09/20/16 0740 1637 36 Humberto Chavez MD, [facility] /EPI
--- NOTE | ~2016-09-19 | HC ---
[facility] [place] [address] CONSULTATION Name: ZENAIDA MONTES Room #: 432-P [facility] IN .R.#: [id number] Admission: 09/19/16 Attend Phys: Kristopher Fajardo MD Discharge: Date of : 40 Report #: [id number] THIS REPORT FOR: //name// CC: Sam Fajardo DATE OF SERVICE: 09/22/2016 HISTORY OF PRESENT ILLNESS: A 76-year-old white female with history of hypertension, COPD, was admitted with increased shortness of breath. She was noted to have acute on chronic respiratory failure with pneumonia, COPD exacerbation and bilateral pulmonary emboli. She was placed on Lovenox, is on IV Solu-Medrol and is being followed closely by Pulmonary Medicine as well as Internal Medicine. Plan is to transition to Pradaxa. She has had a significant functional decline from her premorbid status and we are seeing her in rehabilitation medicine consultation. 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 With her prior history of COPD, she was on 2 liters only when out in the community. She did not use oxygen at home. She was premorbidly driving in the community. MEDICATIONS: Please see the full medication listing. ALLERGIES: KEPPRA, ROCEPHIN and DILANTIN. SOCIAL HISTORY: House spouse, 2 steps in, was premorbidly independent, did not utilize gait aids. There are 4 sons in the area. Her is in reasonable health and able to assist. She was noted to have a wheelchair walker and toilet riser, but did not utilize. REVIEW OF SYSTEMS: Did not offer any current complaints of chest pain, shortness of breath or abdominal discomfort. She does have prior seizure history as noted above. She did not offer any extremity complaints. PHYSICAL EXAMINATION: GENERAL: She is alert, pleasant, overweight 76-year-old white female in no obvious distress. VITAL SIGNS: Last recorded temperature 97.8, pulse 73, respirations 18, blood pressure 109/62. HEENT: Appeared to be benign. She is currently on 5 liters nasal cannula. NEUROLOGIC: Facies are symmetric. She has functional range of motion of both upper extremities with strength to grade 4-/5. DTRs are trace to 1. In her lower extremities, there is no focal calf swelling. Functional range of motion, strength is grade 3+/5. DTRs are trace to 1. She is standby assistance with sit to stand. She ambulates 18 feet, front-wheeled walker, standby assistance. She has been on 5 liters. She ambulates with a slow renard. [address] [address] CONSULTATION Name: ZENAIDA MONTES Carl Room #: 432-P [facility] IN M.R.#: [id number] Admission: 09/19/16 Attend Phys: Kristopher Fajardo MD Discharge: Date of : 40 Report #: [id number] ASSESSMENT: A 76-year-old white female with following problem list: 1. Pulmonary rehabilitation. 2. Medical complexity with generalized debilitation. 3. Acute hypoxic respiratory failure. 4. Bilateral pulmonary emboli. 5. Acute on chronic respiratory failure. 6. Chronic obstructive pulmonary disease exacerbation. 7. Pneumonia. 8. Pulmonary hypertension. 9. Obstructive sleep apnea on CPAP. 10. History of seizures. 11. Hypertension. PLAN: We will add occupational therapy. Note that considerations for either Coumadin or Pradaxa for her pulmonary emboli. She certainly may be a candidate for an acute in-hospital inpatient rehabilitation stay. We will be glad to follow along with you regarding her rehab therapy needs. Note that occupational therapy has already been entered. We will be glad to follow along with you. <ELECTRONICALLY SIGNED> By: Ren Coronado MD 09/30/16 0935 1311 0149 Ren Coronado MD /nt
--- NOTE | ~2016-09-19 | 2DMMODE ---
[facility] [place] [address] 2 D/M-MODE ECHOCARDIOGRAM Name: ZENAIDA MONTES Room #: 432-P [facility] IN .#: [id number] Admission: 09/19/16 Attend Phys: Carl Liang Discharge: Date of : 40 Date of Service: 09/21/16 1133 Report #: [id number] THIS REPORT FOR: //name// Transthoracic Echocardiography Ordering physician: Joseph Gracia Referring physician: Joseph Garcia Alberto Network Support Engineer: YESSICA Mcmanus Indications/History: Pulmonary embolism, COPD, SOA, HTN, HLP. BP: 135 / HR: 82bpm Height: 65in Weight: 230.5lb 72 Study data: M-mode, complete 2D, complete spectral Doppler, and color Doppler. Location: Bedside. Routine. Image quality was adequate. The study was technically limited due to poor acoustic window availability, restricted patient mobility, and body habitus. 2D measurements Normal Normal LVID ED 45.7mm 36-57 IVS ED 13.6mm 6-11 LVID ES 29.8mm 23-40 LVPW ED 14.4mm 6-11 LA volume 19ml/m2 16-28 AoRoot diam 31.8mm 21-37 index ED LVOT diameter 18-23 Findings: Left ventricle: The cavity size was normal. Wall thickness was increased in a pattern of mild LVH. Systolic function was normal. The estimated ejection fraction was in the range of 60% to 65%. Wall motion was normal. Right ventricle: The cavity size was normal. Systolic function was normal. Right atrium: The atrium was normal in size. Left atrium: The atrium was normal in size. Volume index: 19ml/m2 (S). Aortic valve: Trileaflet; mildly calcified leaflets. [facility] [address] [place] [address] 2 D/M-MODE ECHOCARDIOGRAM Name: ZENAIDA MONTES Room #: 432-P [facility] IN ..#: [id number] Admission: 09/19/16 Attend Phys: Kristopher KentcherylCarl johnson Discharge: Date of : 40 Date of Service: 09/21/16 1133 Report #: [id number] Doppler: There was no stenosis. No regurgitation. Mitral valve: Structurally normal valve. Doppler: There was no evidence for stenosis. No regurgitation. Peak E-wave velocity: 79.6cm/s. Peak gradient: 2.5mm Hg (D). Peak A-wave velocity: 86.5cm/s. Tricuspid valve: Structurally normal valve. Doppler: There was no evidence for stenosis. Mild regurgitation. Regurgitant peak velocity: 291.2cm/s. Peak RV-RA gradient: 34mm Hg (S). Pulmonic valve: Structurally normal valve. Doppler: There was no evidence for stenosis. No regurgitation. Pericardium: There was no pericardial effusion. Aorta: Aortic root: The aortic root was normal in size. Pulmonary artery: Systolic pressure was estimated to be 49mm Hg. Diastolic function: Doppler parameters are consistent with abnormal left ventricular relaxation (grade 1 diastolic dysfunction). Systemic veins: Inferior vena cava: The vessel was dilated; respirophasic changes in dimension were absent. Conclusions 1. Left ventricle: The cavity size was normal. Wall thickness was increased in a pattern of mild LVH. Systolic function was normal. The estimated ejection fraction was in the range of 60% to 65%. Wall motion was normal. 2. Aortic valve: Trileaflet; mildly calcified leaflets. 3. Mitral valve: Structurally normal valve. 4. Tricuspid valve: Mild regurgitation. 5. Pulmonary arteries: Systolic pressure was estimated to be 49mm Hg. 6. Inferior vena cava: The vessel was dilated; respirophasic changes in dimension were absent. <ELECTRONICALLY SIGNED> By: Marcus Hinkle MD 09/21/16 1231 1133 1231 Marcus Hinkle MD /bernardo
--- NOTE | ~2016-09-19 | S ---
[facility] [place] [address] SURGICAL PATH RPT PROCEDURE Name: ZENAIDA REICH Room #: 432-P ADM IN M.R.#: [id number] Admission: 09/19/16 Date of : 40 Discharge: Report #: [id number] Path Case #: [id number] PATHOLOGY REPORT COLLECTION DATE: 09/26/2016 RECEIVED DATE: 09/27/2016 SUBMITTING PHYS: Dr. Trent Mtz OTHER PHYS: Dr. Kristopher Coronado SPECIMEN(S) RECEIVED: A.Bx of duodenum * * * * * * * * * * * * FINAL DIAGNOSIS: "Bx of duodenum," biopsy: - Small bowel mucosa with peptic duodenitis including acute and chronic inflammation, edema, reactive changes, and focal lymphatic dilation; no dysplasia is seen. COMMENT: The case is co-reviewed with Dr. Marlene Tripp. Clinical and endoscopic correlation is recommended. (CLW:; d/t: 09/28/16) PATHOLOGIST: Apryl Murillo M.D. REPORT ELECTRONICALLY SIGNED BY: Apryl Murillo M.D. DATE/TIME: 09/28/2016 14:33 * * * * * * * * * * * * GROSS PATHOLOGY: Received in formalin labeled "Zenaida Reich and biopsy of duodenum," are 4 segments of russell soft tissue measuring 1.3 x 0.3 x 0.2 cm in aggregate dimensions and ranging from 0.2 to 0.5 cm in maximum dimension. The specimen is submitted entirely in cassette C1. (TTL; 09/27/2016) CLINICAL HISTORY: Pre-op diagnosis: Pneumonia Post post-op diagnosis: Inflammation INITIAL CPT CODE(S): A; 79317 Professional services performed by [facility] at [address] [address] SURGICAL PATH RPT PROCEDURE Name: ZENAIDA REICH Room #: 432-P ADM IN .R.#: [id number] Admission: 09/19/16 Date of : 40 Discharge: Report #: [id number] Path Case #: [id number] [address] [facility] [place] [address] Technical services performed by [facility] at [address] [place] [address], [facility] [address] [address]. [facility] [address] [place] [address] PHONE: [phone] DIRECTOR: Antonino Jimenez M.D. * * * END OF REPORT * * *
--- NOTE | ~2016-09-19 | P ---
[facility] [place] [address] PROCEDURE REPORT Name: MONTESZENAIDA M Room #: 432-P [facility] IN M.R.#: [id number] Admission: 09/19/16 Attend Phys: Kristopher Fajardo MD Discharge: Date of : 40 Report #: [id number] THIS REPORT FOR: //name// CC: Sam Fajardo DATE OF SERVICE: 10/03/2016 PROCEDURE PERFORMED: Upper endoscopy with biopsy. HISTORY OF PRESENT ILLNESS: A 76-year-old female with midepigastric pain, nausea, vomiting, coffee-ground emesis, undiagnosed liver masses and a gastric outlet obstruction. She had an EGD one week prior, biopsies were taken and came back as chronic inflammation. DESCRIPTION OF PROCEDURE: The risks and benefits of the procedure were explained to the patient and family, those risks including but not limited to bleeding, perforation, risk of sedation. She understood the risks and gave informed consent. Sedation was given using propofol per anesthesia. Next, using a standard Loginzan upper endoscope, scope was placed in the patient's mouth and advanced under direct vision. The first portion of duodenum, upper and mid esophagus were normal. In the distal esophagus, there was LA grade D esophagitis and retained food and fluid. Upon entering the stomach, a large amount of fluid was noted throughout the gastric fundus and the body. Scope was then advanced into the antrum. Pylorus was normal. Duodenal bulb was normal, however, in the first portion of the duodenum, I was unable to advance the scope. There was a polyp/mass that appeared erythematous. This was biopsied. I was unable to advance the scope past the area. IMPRESSION: 1. [place] grade D erosive esophagitis. 2. Large amount of fluid and food residual stomach, likely due to gastric outlet obstruction from duodenal mass. We will await biopsy results and plan is to proceed with a Jameson-en-Y gastrojejunostomy today by Dr. Ochoa and Dr. Goldsmith. Thank you for allowing me to participate in her care. <ELECTRONICALLY SIGNED> By: Marcial Donaldson MD 10/03/16 1318 0827 1001 Marcial Donaldson MD /nt
[~2016-09-19 15:43] MED LIST: ADVAIR HFA115 MCG/21 INH; ASPIRIN81 M2 PO; CARBAMAZEPINE200 M2 PO; CHLORTHALIDONE25 MG PO; CIPROFLOXACIN250 M2 PO; CLONIDINE0.1 PO; CRESTOR40 MG PO; LOTENSIN20 MG PO; MOBIC15 MG PO; NORCO 10-325 T1 EACH PO; TEGRETOL XR200 MG PO; TOPROL XL50 MG PO
[2016-09-19 16:30] LABS: ABSOLUTE NEUTROPHILS 12.1 thou/uL (1.4-8.2); BASOPHILS 0.5 % (0.0-2.0); EOSINOPHILS 0.1 % (0.0-3.0); HEMATOCRIT 37.2 % (37.0-47.0); HEMOGLOBIN 12.4 gm/dL (12.0-15.0); LYMPHOCYTES 10.6 % (24.0-44.0); MCH 28.4 pg (26.0-34.0); MCHC 33.4 % (28.0-37.0); MCV 85.1 fL (80.0-100.0); PLATELET COUNT 233 thou/uL (150-400); POLYS 82.8 % (36.0-66.0); RBC 4.37 mil/uL (4.20-5.00); WBC 14.6 thou/uL (4.0-11.0)
[2016-09-19 16:32] LABS: MANUAL DIFF NO
[2016-09-19 16:45] LABS: ANION GAP 9 mmol/L (7-16); BUN 7 mg/dL (7-18); CALCIUM 9.3 mg/dL (8.5-10.1); CHLORIDE 98 mmol/L (98-107); CO2 34 mmol/L (21-32); CREATININE 0.6 mg/dL (0.6-1.3); GLUCOSE 108 mg/dL (70-99); SODIUM 141 mmol/L (136-145)
[2016-09-19 16:47] LABS: POTASSIUM 2.8 mmol/L (3.5-5.1)
[2016-09-19 16:54] LABS: NT-PRO BRAIN NAT PEPTIDE 1647 pg/mL (<300); TROPONIN-I < 0.04 ng/mL (<0.04-0.07)
[2016-09-19] MEDS ORDERED: LASIX 40 MG TAB40 M2 PO (16:58)
[2016-09-19] MEDS ORDERED: CLARITIN10 M2 PO (16:59)
[2016-09-19 17:16] LABS: ABG SAMPLE TYPE ARTERIAL; BE(vivo) 10.2 mmol/L (-2 to +3); LACTATE 1.02 mmol/L (0.5-2.0); O2(CT) 16.8 mL/dL (15.0-23.0); O2Hb 92.7 % (92.0-98.0); PCO2 42.2 mmHg (35.0-45.0); PO2 67.4 mmHg (80.0-100.0); STICK SITE R.RADIAL; pH 7.524 (7.360-7.450); sO2 95.1 % (92.0-98.0); tCO2 35.3 mmol/L (24.0-30.0)
[2016-09-19 19:59] LABS: CALCIUM 9.1 mg/dL (8.5-10.1); CREATININE 0.6 mg/dL (0.6-1.3); MAGNESIUM 1.9 mg/dL (1.8-2.4); POTASSIUM 3.1 mmol/L (3.5-5.1)
[2016-09-20 05:43] LABS: HEMATOCRIT 34.9 % (37.0-47.0); HEMOGLOBIN 11.5 gm/dL (12.0-15.0); MCH 28.7 pg (26.0-34.0); MCV 87.1 fL (80.0-100.0); PLATELET COUNT 223 thou/uL (150-400); RBC 4.01 mil/uL (4.20-5.00); WBC 9.2 thou/uL (4.0-11.0)
[2016-09-20 05:53] LABS: MANUAL DIFF YES
[2016-09-20 05:59] LABS: CALCIUM 9.1 mg/dL (8.5-10.1); CREATININE 0.5 mg/dL (0.6-1.3); MAGNESIUM 2.1 mg/dL (1.8-2.4); POTASSIUM 3.3 mmol/L (3.5-5.1)
[2016-09-20 08:04] LABS: TOTAL CELL COUNT 100
[2016-09-20 08:05] LABS: ANISOCYTOSIS 1+; POLYCHROMASIA OCCASIONAL
[2016-09-21 06:22] LABS: HEMATOCRIT 36.3 % (37.0-47.0); HEMOGLOBIN 11.6 gm/dL (12.0-15.0); MCHC 31.8 % (28.0-37.0); MCV 87.9 fL (80.0-100.0); PLATELET COUNT 276 thou/uL (150-400); RBC 4.13 mil/uL (4.20-5.00); RDW 14.3 % (10.5-14.5); WBC 13.3 thou/uL (4.0-11.0)
[2016-09-21 06:29] LABS: MANUAL DIFF YES
[2016-09-21 06:52] LABS: CALCIUM 9.5 mg/dL (8.5-10.1); CREATININE 0.8 mg/dL (0.6-1.3); POTASSIUM 4.2 mmol/L (3.5-5.1)
[2016-09-21 09:05] LABS: PLATELET ESTIMATE NORMAL; TOTAL CELL COUNT 100
[2016-09-23] MEDS ORDERED: XOPENEX 0.63 MG/3 M1 INH (08:24)
[2016-09-23] MEDS ORDERED: ENOXAPARIN100 MG/11 SUBQ (08:24)
[2016-09-23] MEDS ORDERED: DUONEB 2.5-0.5 M3 ML INH (08:24)
[2016-09-23] MEDS ORDERED: SOLU-MEDRO40 MG/1 M2 IV PUSH (08:24)
[2016-09-23] MEDS ORDERED: LEVAQUIN 750 M750 MG PO (08:25)
[2016-09-23 16:31] LABS: ABSOLUTE NEUTROPHILS 7.7 thou/uL (1.4-8.2); BASOPHILS 0.2 % (0.0-2.0); HEMATOCRIT 38.3 % (37.0-47.0); HEMOGLOBIN 12.3 gm/dL (12.0-15.0); LYMPHOCYTES 21.5 % (24.0-44.0); MCH 27.9 pg (26.0-34.0); MCV 87.3 fL (80.0-100.0); MONOCYTES 10.4 % (1.0-8.0); POLYS 67.9 % (36.0-66.0); RBC 4.39 mil/uL (4.20-5.00); RDW 14.5 % (10.5-14.5); WBC 11.3 thou/uL (4.0-11.0)
[2016-09-23 16:33] LABS: MANUAL DIFF NO; PLATELET COUNT 353 thou/uL (150-400)
[2016-09-23 16:37] LABS: CALCIUM 9.2 mg/dL (8.5-10.1); CREATININE 0.8 mg/dL (0.6-1.3); POTASSIUM 3.4 mmol/L (3.5-5.1)
[2016-09-23 16:43] LABS: ALBUMIN 2.9 g/dL (3.4-5.0); TOTAL BILIRUBIN 0.4 mg/dL (<0.1-1.0); TOTAL PROTEIN 6.2 g/dL (6.4-8.2)
[2016-09-25 05:35] LABS: ABSOLUTE NEUTROPHILS 7.8 thou/uL (1.4-8.2); BASOPHILS 0.2 % (0.0-2.0); EOSINOPHILS 0.7 % (0.0-3.0); HEMATOCRIT 32.6 % (37.0-47.0); HEMOGLOBIN 10.6 gm/dL (12.0-15.0); LYMPHOCYTES 25.3 % (24.0-44.0); MCHC 32.5 % (28.0-37.0); MONOCYTES 8.6 % (1.0-8.0); POLYS 65.2 % (36.0-66.0); RBC 3.79 mil/uL (4.20-5.00); RDW 14.4 % (10.5-14.5)
[2016-09-25 05:40] LABS: PLATELET COUNT 268 thou/uL (150-400)
[2016-09-25 05:41] LABS: MANUAL DIFF NO
[2016-09-25 06:01] LABS: CALCIUM 8.7 mg/dL (8.5-10.1); CREATININE 0.9 mg/dL (0.6-1.3); POTASSIUM 3.1 mmol/L (3.5-5.1)
[2016-09-26 05:36] LABS: ABSOLUTE NEUTROPHILS 7.8 thou/uL (1.4-8.2); BASOPHILS 0.3 % (0.0-2.0); EOSINOPHILS 3.5 % (0.0-3.0); HEMATOCRIT 34.9 % (37.0-47.0); HEMOGLOBIN 11.2 gm/dL (12.0-15.0); LYMPHOCYTES 22.4 % (24.0-44.0); MCH 28.2 pg (26.0-34.0); MCV 87.9 fL (80.0-100.0); MONOCYTES 8.5 % (1.0-8.0); PLATELET COUNT 273 thou/uL (150-400); POLYS 65.3 % (36.0-66.0); RBC 3.97 mil/uL (4.20-5.00); RDW 14.9 % (10.5-14.5); WBC 11.9 thou/uL (4.0-11.0)
[2016-09-26 05:37] LABS: MANUAL DIFF NO
[2016-09-26 05:50] LABS: CREATININE 0.8 mg/dL (0.6-1.3); POTASSIUM 3.5 mmol/L (3.5-5.1)
[2016-09-27 06:19] LABS: ABSOLUTE NEUTROPHILS 14.2 thou/uL (1.4-8.2); BASOPHILS 0.2 % (0.0-2.0); EOSINOPHILS 0.8 % (0.0-3.0); MCH 28.1 pg (26.0-34.0); MCHC 32.3 g/dL (28.0-37.0); MCV 86.9 fL (80.0-100.0); MONOCYTES 7.3 % (1.0-8.0); PLATELET COUNT 238 thou/uL (150-400); POLYS 79.7 % (36.0-66.0); RBC 3.91 mil/uL (4.20-5.00); RDW 15.4 % (10.5-14.5); WBC 17.9 thou/uL (4.0-11.0)
[2016-09-27 06:24] LABS: CREATININE 0.9 mg/dL (0.6-1.3)
[2016-09-27 06:27] LABS: MANUAL DIFF NO
[2016-09-27 07:41] LABS: LARGE PLATELETS RARE
[2016-09-28 06:29] LABS: HEMATOCRIT 31.2 % (37.0-47.0); HEMOGLOBIN 10.4 gm/dL (12.0-15.0); MCH 28.8 pg (26.0-34.0); MCHC 33.3 g/dL (28.0-37.0); MCV 86.7 fL (80.0-100.0); PLATELET COUNT 225 thou/uL (150-400); RDW 15.1 % (10.5-14.5); WBC 16.8 thou/uL (4.0-11.0)
[2016-09-28 06:37] LABS: MANUAL DIFF YES
[2016-09-28 07:15] LABS: ABSOLUTE NEUTROPHILS 15.6 thou/uL (1.4-8.2); TOTAL CELL COUNT 100
[2016-09-28 07:16] LABS: ANISOCYTOSIS 1+; LARGE PLATELETS FEW; OVALOCYTES FEW
[2016-09-28 07:29] LABS: CALCIUM 9.2 mg/dL (8.5-10.1); CREATININE 0.7 mg/dL (0.6-1.3); POTASSIUM 3.6 mmol/L (3.5-5.1)
[2016-09-28 16:10] LABS: CA 125 11.2 U/mL (0.0-38.1)
[2016-09-30 04:38] LABS: HEMATOCRIT 25.1 % (37.0-47.0); MCH 28.7 pg (26.0-34.0); MCHC 32.2 g/dL (28.0-37.0); MCV 89.4 fL (80.0-100.0); PLATELET COUNT 189 thou/uL (150-400); RBC 2.81 mil/uL (4.20-5.00); WBC 13.9 thou/uL (4.0-11.0)
[2016-09-30 04:46] LABS: HEMOGLOBIN 8.1 gm/dL (12.0-15.0); MANUAL DIFF YES
[2016-09-30 04:52] LABS: APTT 55.1 Seconds (24.5-32.8); INR 1.1; PROTIME 11.8 Seconds (9.3-11.4)
[2016-09-30 05:13] LABS: ALBUMIN 2.3 g/dL (3.4-5.0); CALCIUM 8.9 mg/dL (8.5-10.1); CREATININE 0.6 mg/dL (0.6-1.3); MAGNESIUM 1.9 mg/dL (1.8-2.4); TOTAL BILIRUBIN 0.2 mg/dL (<0.1-1.0); TOTAL PROTEIN 5.1 g/dL (6.4-8.2)
[2016-09-30 05:18] LABS: POTASSIUM 2.8 mmol/L (3.5-5.1)
[2016-09-30 07:19] LABS: ABSOLUTE NEUTROPHILS 12.8 thou/uL (1.4-8.2); TOTAL CELL COUNT 100
[2016-09-30 07:20] LABS: PLATELET ESTIMATE NORMAL
[2016-09-30 08:08] LABS: CEA 288.3 ng/mL (0.0-4.7)
[2016-09-30 18:22] LABS: MAGNESIUM 1.9 mg/dL (1.8-2.4); POTASSIUM 3.1 mmol/L (3.5-5.1)
[2016-09-30 21:50] LABS: APTT 41.8 Seconds (24.5-32.8); INR 1.1; PROTIME 11.8 Seconds (9.3-11.4)
[2016-10-01 06:28] LABS: HEMOGLOBIN 7.5 gm/dL (12.0-15.0)
[2016-10-01 06:30] LABS: HEMATOCRIT 23.5 % (37.0-47.0); MCH 28.4 pg (26.0-34.0); MCV 88.8 fL (80.0-100.0); PLATELET COUNT 165 thou/uL (150-400); RBC 2.65 mil/uL (4.20-5.00); RDW 15.2 % (10.5-14.5); WBC 11.2 thou/uL (4.0-11.0)
[2016-10-01 06:38] LABS: MANUAL DIFF YES
[2016-10-01 06:39] LABS: CALCIUM 8.9 mg/dL (8.5-10.1); CREATININE 0.5 mg/dL (0.6-1.3); MAGNESIUM 1.9 mg/dL (1.8-2.4); POTASSIUM 3.3 mmol/L (3.5-5.1)
[2016-10-01 08:46] LABS: ABSOLUTE NEUTROPHILS 10.2 thou/uL (1.4-8.2); TOTAL CELL COUNT 100
[2016-10-01 08:56] LABS: ANISOCYTOSIS 1+
[2016-10-01 15:22] LABS: APTT 57.4 Seconds (24.5-32.8); INR 1.2; PROTIME 12.1 Seconds (9.3-11.4)
[2016-10-02 06:04] LABS: PLATELET COUNT 167 thou/uL (150-400); WBC 12.5 thou/uL (4.0-11.0)
[2016-10-02 06:06] LABS: HEMATOCRIT 21.9 % (37.0-47.0); MCH 28.1 pg (26.0-34.0); MCHC 31.4 g/dL (28.0-37.0); MCV 89.5 fL (80.0-100.0); RBC 2.45 mil/uL (4.20-5.00); RDW 15.6 % (10.5-14.5)
[2016-10-02 06:09] LABS: HEMOGLOBIN 6.9 gm/dL (12.0-15.0); MANUAL DIFF YES
[2016-10-02 06:22] LABS: ALBUMIN 2.3 g/dL (3.4-5.0); CREATININE 0.6 mg/dL (0.6-1.3); TOTAL BILIRUBIN 0.3 mg/dL (<0.1-1.0); TOTAL PROTEIN 4.9 g/dL (6.4-8.2)
[2016-10-02 07:10] LABS: ATYPICAL LYMPHS 1 %; METAMYELOCYTES 1 %; TOTAL CELL COUNT 100
[2016-10-02 07:11] LABS: ABSOLUTE NEUTROPHILS 11.1 thou/uL (1.4-8.2); ANISOCYTOSIS 1+; OVALOCYTES FEW; POLYCHROMASIA OCCASIONAL
[2016-10-02 18:57] LABS: INR 1.1; PROTIME 11.3 Seconds (9.3-11.4)
[2016-10-02 19:05] LABS: APTT 141.7 Seconds (24.5-32.8)
[2016-10-03 03:04] LABS: ALBUMIN 2.5 g/dL (3.4-5.0); CREATININE 0.6 mg/dL (0.6-1.3); MAGNESIUM 2.2 mg/dL (1.8-2.4); PHOSPHORUS 3.5 mg/dL (2.5-4.9); POTASSIUM 3.1 mmol/L (3.5-5.1); TOTAL BILIRUBIN 0.7 mg/dL (<0.1-1.0); TOTAL PROTEIN 5.2 g/dL (6.4-8.2)
[2016-10-03 11:56] LABS: MCH 28.9 pg (26.0-34.0); MCHC 32.2 g/dL (28.0-37.0); MCV 89.6 fL (80.0-100.0); RBC 3.12 mil/uL (4.20-5.00); RDW 15.2 % (10.5-14.5); WBC 14.9 thou/uL (4.0-11.0)
[2016-10-03 11:58] LABS: MANUAL DIFF YES
[2016-10-03 12:05] LABS: ABG SAMPLE TYPE ARTERIAL; BE(vivo) -1.4 mmol/L (-2 to +3); HCO3 24.8 mmol/L (22.0-26.0); LACTATE 1.38 mmol/L (0.5-2.0); O2Hb 98.2 % (92.0-98.0); PCO2 48.6 mmHg (35.0-45.0); PO2 236.7 mmHg (80.0-100.0); STICK SITE LINE; pH 7.326 (7.360-7.450); sO2 99.5 % (92.0-98.0); tCO2 26.3 mmol/L (24.0-30.0)
[2016-10-03 12:06] LABS: TIDAL VOLUME 500 ml
[2016-10-03 12:09] LABS: PROTIME 10.7 Seconds (9.3-11.4)
[2016-10-03 12:14] LABS: CALCIUM 7.9 mg/dL (8.5-10.1); CREATININE 0.6 mg/dL (0.6-1.3); POTASSIUM 3.7 mmol/L (3.5-5.1); TOTAL BILIRUBIN 0.8 mg/dL (<0.1-1.0); TOTAL PROTEIN 4.4 g/dL (6.4-8.2)
[2016-10-03 12:25] LABS: ABSOLUTE NEUTROPHILS 13.4 thou/uL (1.4-8.2); LARGE PLATELETS RARE; PLATELET COUNT 146 thou/uL (150-400); TOTAL CELL COUNT 100
[2016-10-03 13:49] LABS: HEMATOCRIT 28.5 % (37.0-47.0); HEMOGLOBIN 9.4 gm/dL (12.0-15.0)
[2016-10-03 19:43] LABS: HEMATOCRIT 27.6 % (37.0-47.0); HEMOGLOBIN 9.1 gm/dL (12.0-15.0)
[2016-10-04 05:34] LABS: ABG SAMPLE TYPE ARTERIAL; BE(vivo) 2.1 mmol/L (-2 to +3); FIO2 45 %; HCO3 26.5 mmol/L (22.0-26.0); LACTATE 1.52 mmol/L (0.5-2.0); O2(CT) 12.4 mL/dL (15.0-23.0); O2Hb 96.6 % (92.0-98.0); PCO2 40.9 mmHg (35.0-45.0); PO2 114.5 mmHg (80.0-100.0); STICK SITE LINE; TIDAL VOLUME 550 ml; sO2 98.3 % (92.0-98.0); tCO2 27.8 mmol/L (24.0-30.0)
[2016-10-04 05:48] LABS: HEMATOCRIT 25.8 % (37.0-47.0); HEMOGLOBIN 8.4 gm/dL (12.0-15.0); MCH 29.2 pg (26.0-34.0); MCHC 32.5 g/dL (28.0-37.0); MCV 89.8 fL (80.0-100.0); PLATELET COUNT 129 thou/uL (150-400); RBC 2.88 mil/uL (4.20-5.00); RDW 15.4 % (10.5-14.5)
[2016-10-04 05:51] LABS: MANUAL DIFF YES
[2016-10-04 06:13] LABS: CALCIUM 8.2 mg/dL (8.5-10.1); CREATININE 0.6 mg/dL (0.6-1.3); PHOSPHORUS 3.6 mg/dL (2.5-4.9); POTASSIUM 3.9 mmol/L (3.5-5.1)
[2016-10-04 10:08] LABS: ABSOLUTE NEUTROPHILS 11.9 thou/uL (1.4-8.2); PLATELET ESTIMATE NORMAL; TOTAL CELL COUNT 100
[2016-10-04 10:33] LABS: ABG SAMPLE TYPE ARTERIAL; BE(vivo) 4.6 mmol/L (-2 to +3); HCO3 28.9 mmol/L (22.0-26.0); LACTATE 1.62 mmol/L (0.5-2.0); O2(CT) 12.4 mL/dL (15.0-23.0); O2Hb 95.9 % (92.0-98.0); PCO2 41.8 mmHg (35.0-45.0); PO2 95.8 mmHg (80.0-100.0); pH 7.457 (7.360-7.450); sO2 97.6 % (92.0-98.0); tCO2 30.1 mmol/L (24.0-30.0)
[2016-10-04 10:34] LABS: ABG COMMENT CPAP TRIAL; Pressure Support 8 cm H20; STICK SITE LINE; TIDAL VOLUME 480 ml
[2016-10-05 05:17] LABS: HEMATOCRIT 23.6 % (37.0-47.0); HEMOGLOBIN 7.5 gm/dL (12.0-15.0); MCH 28.9 pg (26.0-34.0); MCHC 31.8 g/dL (28.0-37.0); PLATELET COUNT 114 thou/uL (150-400); RBC 2.59 mil/uL (4.20-5.00); RDW 15.6 % (10.5-14.5); WBC 12.8 thou/uL (4.0-11.0)
[2016-10-05 05:25] LABS: MANUAL DIFF YES
[2016-10-05 05:28] LABS: ABG SAMPLE TYPE ARTERIAL; BE(vivo) 3.9 mmol/L (-2 to +3); HCO3 28.7 mmol/L (22.0-26.0); O2(CT) 10.9 mL/dL (15.0-23.0); O2Hb 92.5 % (92.0-98.0); PCO2 44.6 mmHg (35.0-45.0); PO2 73.2 mmHg (80.0-100.0); STICK SITE LINE; pH 7.427 (7.360-7.450); tCO2 30.1 mmol/L (24.0-30.0)
[2016-10-05 05:37] LABS: CALCIUM 8.1 mg/dL (8.5-10.1); CREATININE 0.4 mg/dL (0.6-1.3); PHOSPHORUS 2.8 mg/dL (2.5-4.9); POTASSIUM 3.8 mmol/L (3.5-5.1)
[2016-10-05 06:20] LABS: LARGE PLATELETS RARE; TOTAL CELL COUNT 100
[2016-10-05 16:51] LABS: HEMATOCRIT 30.3 % (37.0-47.0)
[2016-10-05 16:52] LABS: HEMOGLOBIN 9.9 gm/dL (12.0-15.0)
[2016-10-06 03:11] LABS: ABG SAMPLE TYPE ARTERIAL; BE(vivo) 3.5 mmol/L (-2 to +3); HCO3 27.7 mmol/L (22.0-26.0); LACTATE 1.73 mmol/L (0.5-2.0); PCO2 40.8 mmHg (35.0-45.0); PO2 63.8 mmHg (80.0-100.0); STICK SITE LINE; sO2 93.3 % (92.0-98.0)
[2016-10-06 05:54] LABS: HEMATOCRIT 30.5 % (37.0-47.0); MCH 27.4 pg (26.0-34.0); MCHC 32.7 g/dL (28.0-37.0); PLATELET COUNT 102 thou/uL (150-400); RBC 3.64 mil/uL (4.20-5.00); RDW 21.6 % (10.5-14.5); WBC 14.3 thou/uL (4.0-11.0)
[2016-10-06 06:00] LABS: ALBUMIN 1.7 g/dL (3.4-5.0); CALCIUM 8.4 mg/dL (8.5-10.1); CREATININE 0.5 mg/dL (0.6-1.3); MAGNESIUM 2.1 mg/dL (1.8-2.4); PHOSPHORUS 2.7 mg/dL (2.5-4.9); POTASSIUM 4.6 mmol/L (3.5-5.1); TOTAL BILIRUBIN 0.6 mg/dL (<0.1-1.0); TOTAL PROTEIN 4.5 g/dL (6.4-8.2)
[2016-10-06 06:10] LABS: MCV 83.9 fL (80.0-100.0)
[2016-10-06 06:12] LABS: MANUAL DIFF YES
[2016-10-06 06:53] LABS: ABSOLUTE NEUTROPHILS 13.9 thou/uL (1.4-8.2); PLATELET ESTIMATE DECREASED; TOTAL CELL COUNT 100
[2016-10-06 06:54] LABS: ANISOCYTOSIS 2+; POIKILOCYTOSIS 1+
[2016-10-06 06:55] LABS: OVALOCYTES 1+
[2016-10-06 06:57] LABS: LARGE PLATELETS FEW
[2016-10-06 06:58] LABS: BURR CELLS OCCASIONAL; POLYCHROMASIA 1+; SCHISTOCYTES OCCASIONAL
[2016-10-06 11:07] LABS: APTT 26.8 Seconds (24.5-32.8); FIBRINOGEN 329.3 mg/dL (210-360); PROTIME 10.3 Seconds (9.3-11.4)
[2016-10-06 19:12] LABS: FOLIC ACID 8.6 ng/mL (>3.0)
[2016-10-06 20:06] LABS: HEPATITIS C VIRUS AB <0.1 (0.0-0.9)
[2016-10-07 04:13] LABS: HEMATOCRIT 30.3 % (37.0-47.0); HEMOGLOBIN 10.1 gm/dL (12.0-15.0); MCHC 33.3 g/dL (28.0-37.0); MCV 84.1 fL (80.0-100.0); PLATELET COUNT 118 thou/uL (150-400); RDW 20.9 % (10.5-14.5); WBC 9.5 thou/uL (4.0-11.0)
[2016-10-07 04:16] LABS: MANUAL DIFF YES
[2016-10-07 04:23] LABS: CALCIUM 8.2 mg/dL (8.5-10.1); CREATININE 0.5 mg/dL (0.6-1.3); POTASSIUM 4.6 mmol/L (3.5-5.1)
[2016-10-07 05:28] LABS: ABSOLUTE NEUTROPHILS 8.4 thou/uL (1.4-8.2); ANISOCYTOSIS 2+; MACROCYTES 1+; METAMYELOCYTES 1 %; MICROCYTES 1+; MYELOCYTES 1 %; TOTAL CELL COUNT 100
[2016-10-07 05:29] LABS: LARGE PLATELETS RARE
[2016-10-07 18:51] LABS: HEMATOCRIT 31.9 % (37.0-47.0); HEMOGLOBIN 10.5 gm/dL (12.0-15.0); MCH 27.5 pg (26.0-34.0); MCHC 32.9 g/dL (28.0-37.0); MCV 83.5 fL (80.0-100.0); RBC 3.82 mil/uL (4.20-5.00); RDW 20.4 % (10.5-14.5); WBC 13.1 thou/uL (4.0-11.0)
[2016-10-07 23:27] LABS: HEMATOCRIT 31.8 % (37.0-47.0); HEMOGLOBIN 10.4 gm/dL (12.0-15.0); MCH 27.3 pg (26.0-34.0); MCHC 32.6 g/dL (28.0-37.0); MCV 83.7 fL (80.0-100.0); RBC 3.79 mil/uL (4.20-5.00); RDW 20.6 % (10.5-14.5); WBC 14.7 thou/uL (4.0-11.0)
[2016-10-07 23:29] LABS: CALCIUM 8.5 mg/dL (8.5-10.1); CREATININE 0.5 mg/dL (0.6-1.3); POTASSIUM 4.2 mmol/L (3.5-5.1)
[2016-10-07 23:35] LABS: APTT 25.7 Seconds (24.5-32.8); FIBRINOGEN 329.3 mg/dL (210-360); PROTIME 10.7 Seconds (9.3-11.4)
[2016-10-08 04:20] LABS: HEMATOCRIT 27.2 % (37.0-47.0); HEMOGLOBIN 8.9 gm/dL (12.0-15.0); MCH 27.5 pg (26.0-34.0); MCHC 32.6 g/dL (28.0-37.0); MCV 84.2 fL (80.0-100.0); RBC 3.23 mil/uL (4.20-5.00); RDW 20.5 % (10.5-14.5)
[2016-10-08 04:31] LABS: CALCIUM 8.2 mg/dL (8.5-10.1); CREATININE 0.5 mg/dL (0.6-1.3)
[2016-10-08 16:13] LABS: HEMATOCRIT 27.7 % (37.0-47.0); HEMOGLOBIN 9.2 gm/dL (12.0-15.0); MCH 27.7 pg (26.0-34.0); MCHC 33.1 g/dL (28.0-37.0); MCV 83.7 fL (80.0-100.0); RBC 3.31 mil/uL (4.20-5.00); RDW 20.6 % (10.5-14.5); WBC 11.7 thou/uL (4.0-11.0)
[2016-10-09 04:26] LABS: HEMATOCRIT 27.2 % (37.0-47.0); HEMOGLOBIN 8.6 gm/dL (12.0-15.0); MCH 27.4 pg (26.0-34.0); MCHC 31.5 g/dL (28.0-37.0); MCV 86.9 fL (80.0-100.0); PLATELET COUNT 102 thou/uL (150-400); RBC 3.13 mil/uL (4.20-5.00); RDW 20.6 % (10.5-14.5); WBC 10.3 thou/uL (4.0-11.0)
[2016-10-09 04:39] LABS: MANUAL DIFF YES
[2016-10-09 04:44] LABS: CALCIUM 8.4 mg/dL (8.5-10.1); CREATININE 0.6 mg/dL (0.6-1.3); POTASSIUM 4.3 mmol/L (3.5-5.1)
[2016-10-09 06:53] LABS: ABSOLUTE NEUTROPHILS 8.5 thou/uL (1.4-8.2); ANISOCYTOSIS 1+; HYPOCHROMASIA 1+; LARGE PLATELETS FEW; TOTAL CELL COUNT 100
[2016-10-10 06:31] LABS: HEMOGLOBIN 8.9 gm/dL (12.0-15.0); MCH 27.2 pg (26.0-34.0); MCHC 30.7 g/dL (28.0-37.0); MCV 88.5 fL (80.0-100.0); RBC 3.28 mil/uL (4.20-5.00); RDW 20.8 % (10.5-14.5); WBC 18.2 thou/uL (4.0-11.0)
[2016-10-11 00:35] LABS: ABG SAMPLE TYPE ARTERIAL; BE(vivo) -13.5 mmol/L (-2 to +3); HCO3 13.1 mmol/L (22.0-26.0); LACTATE 14.79 mmol/L (0.5-2.0); O2(CT) 15.3 mL/dL (15.0-23.0); O2Hb 98.5 % (92.0-98.0); PCO2 32.6 mmHg (35.0-45.0); PO2 239.9 mmHg (80.0-100.0); STICK SITE L.RADIAL; pH 7.221 (7.360-7.450); sO2 99.4 % (92.0-98.0); tCO2 14.1 mmol/L (24.0-30.0)
== END 2016-10-11 01:30 | DRG 853 ==
LOC: ER 15:43 → EROBS 17:41 → 4E 17:41 → ICU 10-03 13:22 → 3N 10-08 13:44
PROVIDERS: Emergency Medicine; Internal Medicine; Internal Medicine Endocrinology, Diabetes & Metabolism; Internal Medicine Hematology & Oncology; Internal Medicine Pulmonary Disease; Nurse Practitioner Adult Health; Otolaryngology; Surgery
PROC: 0DB98ZX Excision of Duodenum, Via Natural or Artificial Opening Endoscopic, Diagnostic (ICD-10-PCS; 2016-09-26)
PROC: B5181ZA Fluoroscopy of Superior Vena Cava using Low Osmolar Contrast, Guidance (ICD-10-PCS; 2016-09-27)
PROC: 02HV33Z Insertion of Infusion Device into Superior Vena Cava, Percutaneous Approach (ICD-10-PCS; 2016-09-27)
PROC: 06H03DZ Insertion of Intraluminal Device into Inferior Vena Cava, Percutaneous Approach (ICD-10-PCS; 2016-09-30)
PROC: 3E0336Z Introduction of Nutritional Substance into Peripheral Vein, Percutaneous Approach (ICD-10-PCS; 2016-09-30)
PROC: 0D164ZA Bypass Stomach to Jejunum, Percutaneous Endoscopic Approach (ICD-10-PCS; principal; 2016-10-03)
PROC: 0FB20ZX Excision of Left Lobe Liver, Open Approach, Diagnostic (ICD-10-PCS; 2016-10-03)
PROC: 0BH17EZ Insertion of Endotracheal Airway into Trachea, Via Natural or Artificial Opening (ICD-10-PCS; 2016-10-03)
PROC: 5A1935Z Respiratory Ventilation, Less than 24 Consecutive Hours (ICD-10-PCS; 2016-10-03)
PROC: 0DB98ZX Excision of Duodenum, Via Natural or Artificial Opening Endoscopic, Diagnostic (ICD-10-PCS; 2016-10-03)
PROC: B549ZZA Ultrasonography of Inferior Vena Cava, Guidance (ICD-10-PCS; 2016-10-03)
PROC: 30233N1 Transfusion of Nonautologous Red Blood Cells into Peripheral Vein, Percutaneous Approach (ICD-10-PCS; 2016-10-05)
DX: A41.9 Sepsis, unspecified organism (principal); I26.99 Other pulmonary embolism without acute cor pulmonale; J18.9 Pneumonia, unspecified organism; J96.21 Acute and chronic respiratory failure with hypoxia; G93.41 Metabolic encephalopathy; K31.5 Obstruction of duodenum; J44.1 Chronic obstructive pulmonary disease with (acute) exacerbation; J44.0 Chronic obstructive pulmonary disease with (acute) lower respiratory infection; E87.0 Hyperosmolality and hypernatremia; C25.9 Malignant neoplasm of pancreas, unspecified; K92.1 Melena; C78.7 Secondary malignant neoplasm of liver and intrahepatic bile duct; Z68.41 Body mass index [BMI] 40.0-44.9, adult; I10 Essential (primary) hypertension; E78.5 Hyperlipidemia, unspecified; G40.909 Epilepsy, unspecified, not intractable, without status epilepticus; K20.9 Esophagitis, unspecified; I27.2 Other secondary pulmonary hypertension; G47.33 Obstructive sleep apnea (adult) (pediatric); E66.9 Obesity, unspecified; I25.10 Atherosclerotic heart disease of native coronary artery without angina pectoris; I67.1 Cerebral aneurysm, nonruptured; E87.6 Hypokalemia; D64.9 Anemia, unspecified; I95.9 Hypotension, unspecified; K31.7 Polyp of stomach and duodenum; R53.81 Other malaise; I25.2 Old myocardial infarction; Z86.718 Personal history of other venous thrombosis and embolism; Z90.710 Acquired absence of both cervix and uterus; Z66 Do not resuscitate
CPT/HCPCS: 10078; 10183; 10795; 27000; 50010; 50093; 50101; 50386; 50455; 50953; 51046; 51412; 51708; 51712; 56527; 56530; 57092; 62110; 62900; 70005; 85076